=== PATIENT | female | born 1970 | race Caucasian/White ===

== ENCOUNTER 2017-07-10 10:06 | Emergency (ER) | payer MEDICARE ==
--- NOTE | 2017-07-10 10:34 | ERPHSYRPT ---
- History of Present Illness Time Seen by Provider: 07/10/17 10:32 Historian: patient Exam Limitations: no limitations Patient Subjective Stated Complaint: Pt states she fell Tuesday evening and hit the right side of her chest on a carseat. It has been a little sore since then but today the pain got worse and it hurts when she takes a breath in. Triage Nursing Assessment: Pt alert and oriented x3. skin pink warm and dry. afebrile. pt breathing shallow due to pain. right side of chest tender to touch Physician History: mild right anterior chest wall ache since trip and fall against her car seat last Tuesday, pleuritic and positional, no other injury, no loc, no neck pain, no abdominal pain, no NV, ambulatory, no bleeding, pt refused pain med Aspirin Treatment Today: no aspirin today Allergies/Adverse Reactions: bupropion HCl [From Wellbutrin] Allergy (Intermediate, Verified 07/21/16 14:11) aripiprazole [From Abilify] Allergy (Verified 07/21/16 14:11) clindamycin Allergy (Verified 07/21/16 14:11) metal Allergy (Uncoded 07/21/16 14:11) unknown antibiotic Allergy (Uncoded 07/21/16 14:11) caused itching and rash Home Medications: Aspirin 81 mg PO DAILY 02/13/16 [History] Atenolol 50 mg [Tenormin 50 mg] 25 mg PO BID 02/13/16 [History] Betamethasone Valerate 1 appful TOP DAILY 02/13/16 [History] Cetirizine HCl [Zyrtec] 10 mg PO DAILY 02/13/16 [History] Cholecalciferol (Vitamin D3) [Vitamin D] 1 tab PO DAILY 02/13/16 [History] Enalapril Maleate 5 mg [Vasotec 5 MG] 5 mg PO DAILY 02/13/16 [History] Glimepiride 4 mg [Amaryl 4 mg] 4 mg PO BID 02/13/16 [History] Ibuprofen 800 mg PO Q8HPRN PRN 02/13/16 [History] Insulin Detemir [Levemir Flexpen] 50 units SQ DAILY 02/13/16 [History] Loperamide HCl 2 mg [Imodium 2 mg] 2 mg PO BID 02/13/16 [History] Medroxyprogesterone Acetate [Depo-Provera] 0 mg SQ .UNKNOWN 02/13/16 [History] Multivitamin [Daily Multivitamin] 1 tab PO DAILY 02/13/16 [History] Promethazine HCl 25 mg [Phenergan 25 mg] 25 mg PO Q12H PRN PRN 02/13/16 [ History] Ranitidine HCl [Zantac 75] 150 mg PO BID 02/13/16 [History] Simvastatin 40 mg [Zocor 40 mg] 40 mg PO HS 02/13/16 [History] Sitagliptin Phosphate [Januvia] 100 mg PO DAILY 02/13/16 [History] Venlafaxine HCl ER 75 mg [Effexor XR 75 MG] 150 mg PO BID 02/13/16 [ History] Insulin Aspart [NovoLOG Insulin] 10 - 15 unit SQ UD 05/26/16 [History] Clonazepam 0.5 mg [Klonopin 0.5 MG] 0.5 mg PO TID 06/15/16 [History] Doxycycline Hyclate 100 mg [Vibramycin 100 MG] 100 mg PO BID 07/14/16 [ History] Hydrocodone/APAP 10/325 mg [[place] 10/325 MG Tablet] 1 tab PO Q4-6HPRN PRN 08/17/16 [History] Cyclobenzaprine HCl [Flexeril] 10 mg PO TID 11/09/16 [History] Pramipexole Di-HCl [Mirapex] 2 mg PO HS 03/07/17 [History] Hx Tetanus, Diphtheria Vaccination/Date Given: Yes Hx Influenza Vaccination/Date Given: Yes Hx Pneumococcal Vaccination/Date Given: No - Review of Systems Constitutional: No Fever Eyes: No Symptoms Ears, Nose, & Throat: No Symptoms Respiratory: No Symptoms Cardiac: Chest Pain Abdominal/Gastrointestinal: No Symptoms Musculoskeletal: Fall, No Back Pain, No Neck Pain, No Deformity Skin: No Symptoms Neurological: No Symptoms, No Dizziness, No Focal Weakness, No Headache - Past Medical History Pertinent Past Medical History: Yes Neurological History: No Pertinent History ENT History: No Pertinent History Cardiac History: Arrhythmia, High Cholesterol, Hypertension Respiratory History: Sleep Apnea Endocrine Medical History: Diabetes Type II Musculoskeletal History: Degenerative Disk Disease, Fibromyalgia GI Medical History: GERD History: Renal Disease Psycho-Social History: Depression, Panic Disorder Female Reproductive Disorders: No Pertinent History Other Medical History: Agoraphobia - Past Surgical History Past Surgical History: Yes Neuro Surgical History: No Pertinent History Cardiac: Other Respiratory: No Pertinent History Gastrointestinal: Cholecystectomy Genitourinary: No Pertinent History Musculoskeletal: Other Female Surgical History: No Pertinent History Other Surgical History: back surgery- partial discectomy. cardiac ablation. FATTY TUMOR FROM BACK REMOVED 08/27/13. debridement - Social History Smoking Status: Current every day smoker How long have you smoked: 23years Exposure to second hand smoke: No Drug Use: none Patient Lives Alone: Yes Significant Family History: diabetes - Female History Hx Now: No - Nursing Vital Signs Nursing Vital Signs: Initial Vital Signs Temperature 98.7 F 07/10/17 10:20 Pulse Rate 86 07/10/17 10:20 Respiratory Rate 16 07/10/17 10:20 Blood Pressure 145/70 07/10/17 10:20 O2 Sat by Pulse Oximetry 99 07/10/17 10:20 Pain Scale Pain Intensity 9 - Physical Exam General Appearance: no apparent distress Eye Exam: PERRL/EOMI Ears, Nose, Throat Exam: normal ENT inspection Neck Exam: normal inspection, non-tender Respiratory Exam: normal breath sounds, chest tenderness, lungs clear Cardiovascular Exam: regular rate/rhythm Gastrointestinal/Abdomen Exam: soft, No tenderness Back Exam: normal inspection, No vertebral tenderness Extremity Exam: normal inspection, normal range of motion Neurologic Exam: alert, oriented x 3, cooperative Skin Exam: normal color, warm, dry SpO2 Interpretation: normal SpO2: 99 Oxygen Delivery: Room Air - Course Nursing assessment & vital signs reviewed: Yes EKG Interpreted by Me: Other (nsr 79 similar compared to 2013) - Radiology Exams Chest X-ray Interpretation: Interpreted by me, Other (no obvious pneumothorax or fx) Ordered Tests: Active Orders 24 hr Category Date Time Status EKG-ER Only STAT Care 07/10/17 10:30 Active CHEST 2 VIEWS (PA AND LAT) Stat Exams 07/10/17 10:31 Taken CBC W DIFF Stat Lab 07/10/17 10:40 Completed CK-Creatinine Phosphokinase Stat Lab 07/10/17 10:40 Completed CMP Stat Lab 07/10/17 10:40 Completed D-DIMER QUANTITATION Stat Lab 07/10/17 10:40 Completed TROPONIN Q3H Lab 07/10/17 10:40 Completed TROPONIN Q3H Lab 07/10/17 13:45 Ordered TROPONIN Q3H Lab 07/10/17 16:45 Ordered TROPONIN Q3H Lab 07/10/17 19:45 Ordered TROPONIN Q3H Lab 07/10/17 22:45 Ordered Medication Summary Discontinued Medications Generic Name Dose Route Start Last Admin Trade Name Freq PRN Reason Stop Dose Admin Hydrocodone Bitart/Acetaminophen 1 tab 07/10/17 11:46 07/10/17 11:49 [place] 5/325 Mg PO 07/10/17 11:47 1 tab STAT ONE Administration Hydrocodone Bitart/Acetaminophen Confirm 07/10/17 11:48 [place] 5/325 Mg Administered 07/10/17 11:49 Dose 1 tab .ROUTE .[facility]-MED ONE Lab/Rad Data: Laboratory Result Diagrams 07/10/17 10:40 07/10/17 10:40 Laboratory Results 07/10/17 07/10/17 07/10/17 Range/Units 10:40 10:40 10:40 WBC (4.0-10.5) K/mm3 RBC (4.1-5.4) M/mm3 Hgb (12.0-16.0) gm/dl Hct (35-47) % MCV (78-100) fl MCH (26-32) pg MCHC (32-36) g/dl RDW (11.5-14.0) % Plt Count (150-450) K/mm3 MPV (6-9.5) fl Gran % (36.0-66.0) % Lymphocytes % (24.0-44.0) % Monocytes % (0.0-12.0) % Eosinophils % (0.00-5.0) % Basophils % (0.0-0.4) % Basophils # (0-0.4) D-Dimer 265.86 (0-500) ng/mL Sodium 139 (136-145) mEq/L Potassium 4.0 (3.5-5.1) mEq/L Chloride 105 (98-107) mEq/L Carbon Dioxide 22.1 (21-32) mEq/L Anion Gap 15.9 H (5-15) MEQ/L BUN 12 (9-20) mg/dL Creatinine 0.73 (0.55-1.30) mg/dl Estimated GFR > 60 ML/MIN Glucose 291 H (70-110) MG/DL Calcium 9.3 (8.5-10.1) mg/dL Total Bilirubin 0.40 (0.2-1.0) mg/dL AST 28 (15-37) U/L ALT 66 (12-78) U/L Alkaline Phosphatase 133 H (46-116) U/L Creatine Kinase 44 (26-192) U/L Troponin I < 0.017 (0.000-0.056) ng/ml Serum Total Protein 7.1 (6.4-8.2) gm/dL Albumin 3.7 (3.4-5.0) g/dL 07/10/17 Range/Units 10:40 WBC 12.4 H (4.0-10.5) K/mm3 RBC 4.77 (4.1-5.4) M/mm3 Hgb 13.8 (12.0-16.0) gm/dl Hct 40.3 (35-47) % MCV 84.5 (78-100) fl MCH 28.9 (26-32) pg MCHC 34.2 (32-36) g/dl RDW 13.7 (11.5-14.0) % Plt Count 208 (150-450) K/mm3 MPV 10.9 H (6-9.5) fl Gran % 68.7 H (36.0-66.0) % Lymphocytes % 22.4 L (24.0-44.0) % Monocytes % 6.2 (0.0-12.0) % Eosinophils % 2.3 (0.00-5.0) % Basophils % 0.4 (0.0-0.4) % Basophils # 0.05 (0-0.4) D-Dimer (0-500) ng/mL Sodium (136-145) mEq/L Potassium (3.5-5.1) mEq/L Chloride (98-107) mEq/L Carbon Dioxide (21-32) mEq/L Anion Gap (5-15) MEQ/L BUN (9-20) mg/dL Creatinine (0.55-1.30) mg/dl Estimated GFR ML/MIN Glucose (70-110) MG/DL Calcium (8.5-10.1) mg/dL Total Bilirubin (0.2-1.0) mg/dL AST (15-37) U/L ALT (12-78) U/L Alkaline Phosphatase (46-116) U/L Creatine Kinase (26-192) U/L Troponin I (0.000-0.056) ng/ml Serum Total Protein (6.4-8.2) gm/dL Albumin (3.4-5.0) g/dL - Progress Progress: improved Air Movement: good Progress Note: 07/10/17 12:24 pt improved, norco warnings given, ice, return if worse Discussed with : Bib Will see patient in: office Counseled pt/family regarding: lab results, diagnosis, need for follow-up, rad results - Departure Time of Disposition: 12:25 Departure Disposition: Home Clinical Impression: Chest wall injury Qualifiers: Encounter type: initial encounter Qualified Code(s): S29.9XXA - Unspecified injury of thorax, initial encounter Condition: Stable Critical Care Time: No Referrals: ERIN MONTANEZ [Primary Care Provider] - Instructions: Contusion, Prevent Falls Additional Instructions: norco warnings given see your doctor use ice return if worse
[2017-07-10 10:47] LABS: BASOPHIL % 0.4 % (0.0-0.4); Eosinophil % 2.3 % (0.00-5.0); Granulocytes % 68.7 % (36.0-66.0); Lymphocytes % 22.4 % (24.0-44.0); Mean Cell Volume 84.5 fl (78-100); Mean Corpuscular Hemoglobin 28.9 pg (26-32); Mean Platelet Volume 10.9 fl (6-9.5); Monocytes % 6.2 % (0.0-12.0); Platelet Count 208 K/mm3 (150-450); Red Blood Count 4.77 M/mm3 (4.1-5.4); Red Cell Distribution Width 13.7 % (11.5-14.0); White Blood Count 12.4 K/mm3 (4.0-10.5)
[2017-07-10 11:15] LABS: ALBUMIN 3.7 g/dL (3.4-5.0); ALKALINE PHOSPHATASE 133 U/L (46-116); ANION GAP 15.9 MEQ/L (5-15); BLOOD UREA NITROGEN 12 mg/dL (9-20); CHLORIDE 105 mEq/L (98-107); Carbon Dioxide 22.1 mEq/L (21-32); Glucose 291 MG/DL (70-110); SGOT/AST 28 U/L (15-37); SGPT/ALT 66 U/L (12-78); SODIUM 139 mEq/L (136-145); Total Protein 7.1 gm/dL (6.4-8.2)
[2017-07-10] MEDS ORDERED: NORCO 5/325 MG PO ONE (11:46)
[2017-07-10] MEDS ORDERED: NORCO 5/325 MG ONE (11:48)
[2017-07-10 12:41] VITALS: BP 111/50; PULSE 85; O2SAT 98
--- NOTE | 2017-07-10 19:28 | XRAY ---
Indication: Right upper chest pain following injury. Comparison: February 13, 2016. PA/lateral chest obtained. Lateral view limited by respiration artifact. Lungs clear. Heart is not enlarged. Bony thorax intact. Impression: Nonacute limited chest.
== END 2017-07-10 12:40 | disposition home or self-care (01) ==
LOC: ED 10:06
DX: S29.9XXA Unspecified injury of thorax, initial encounter (principal); W01.198A Fall on same level from slipping, tripping and stumbling with subsequent striking against other object, initial encounter; Z79.899 Other long term (current) drug therapy; Z79.891 Long term (current) use of opiate analgesic; E78.00 Pure hypercholesterolemia, unspecified; I10 Essential (primary) hypertension; E11.9 Type 2 diabetes mellitus without complications
CPT/HCPCS: 36415; 71020; 80053; 82550; 84484; 85025; 85379; 93005; 99283; 99284; A9270-GY

== ENCOUNTER 2018-02-02 16:14 | Emergency (ER) | payer MEDICARE ==
[2018-02-02 16:26] VITALS: BP 111/63; PULSE 93; O2SAT 99
--- NOTE | 2018-02-02 16:56 | ERPHSYRPT ---
- History of Present Illness Time Seen by Provider: 02/02/18 16:40 Source: patient Exam Limitations: clinical condition Patient Subjective Stated Complaint: pt reports congestion and cough beginning a few days ago worsening with time-states she woke this am to a left earache- denies fever Triage Nursing Assessment: pt pink warm and dry-hoase cough noted throughout triage-able to speak in complete sentences with ease-no sob noted Physician History: PATIENT WITH A HISTORY OF HYPERTENSION, TYPE 2 DIABETES AND BIPOLAR DISORDER COMPLAINS OF PRODUCTIVE COUGH, AND SINUS PRESSURE FOR 3-4 DAYS. DENIES FEVER, CHILLS, DYSPNEA OR SORETHROAT. Timing/Duration: day(s) Cough Quality/Degree: moderate, productive cough Possible Cause: occasional episodes Modifying Factors: Improves With: activity Associated Symptoms: cough, nasal congestion, nasal drainage Allergies/Adverse Reactions: bupropion HCl [From Wellbutrin] Allergy (Intermediate, Verified 02/02/18 16:26) aripiprazole [From Abilify] Allergy (Verified 02/02/18 16:26) clindamycin Allergy (Verified 02/02/18 16:26) metal Allergy (Uncoded 02/02/18 16:26) unknown antibiotic Allergy (Uncoded 02/02/18 16:26) caused itching and rash Home Medications: Aspirin 81 mg PO DAILY 02/13/16 [History] Atenolol 50 mg [Tenormin 50 mg] 25 mg PO BID 02/13/16 [History] Betamethasone Valerate 1 appful TOP DAILY 02/13/16 [History] Cetirizine HCl [Zyrtec] 10 mg PO DAILY 02/13/16 [History] Cholecalciferol (Vitamin D3) [Vitamin D] 1 tab PO DAILY 02/13/16 [History] Enalapril Maleate 5 mg [Vasotec 5 MG] 5 mg PO DAILY 02/13/16 [History] Glimepiride 4 mg [Amaryl 4 mg] 4 mg PO BID 02/13/16 [History] Ibuprofen 800 mg PO Q8HPRN PRN 02/13/16 [History] Insulin Detemir [Levemir Flexpen] 50 units SQ DAILY 02/13/16 [History] Loperamide HCl 2 mg [Imodium 2 mg] 2 mg PO BID 02/13/16 [History] Medroxyprogesterone Acetate [Depo-Provera] 0 mg SQ .UNKNOWN 02/13/16 [History] Multivitamin [Daily Multivitamin] 1 tab PO DAILY 02/13/16 [History] Promethazine HCl 25 mg [Phenergan 25 mg] 25 mg PO Q12H PRN PRN 02/13/16 [ History] Ranitidine HCl [Zantac 75] 150 mg PO BID 02/13/16 [History] Simvastatin 40 mg [Zocor 40 mg] 40 mg PO HS 02/13/16 [History] Sitagliptin Phosphate [Januvia] 100 mg PO DAILY 02/13/16 [History] Venlafaxine HCl ER 75 mg [Effexor XR 75 MG] 150 mg PO BID 02/13/16 [ History] Insulin Aspart [NovoLOG Insulin] 10 - 15 unit SQ UD 05/26/16 [History] Clonazepam 0.5 mg [Klonopin 0.5 MG] 0.5 mg PO TID 06/15/16 [History] Doxycycline Hyclate 100 mg [Vibramycin 100 MG] 100 mg PO BID 07/14/16 [ History] Hydrocodone/APAP 10/325 mg [[place] 10/325 MG Tablet] 1 tab PO Q4-6HPRN PRN 08/17/16 [History] Cyclobenzaprine HCl [Flexeril] 10 mg PO TID 11/09/16 [History] Pramipexole Di-HCl [Mirapex] 2 mg PO HS 03/07/17 [History] Hx Tetanus, Diphtheria Vaccination/Date Given: Yes Hx Influenza Vaccination/Date Given: Yes Hx Pneumococcal Vaccination/Date Given: No Immunizations Up to Date: Yes - Review of Systems Constitutional: No Fever, No Chills Eyes: No Symptoms Ears, Nose, & Throat: No Symptoms, Nose Congestion, Sinus Drainage Respiratory: Cough, No Dyspnea Cardiac: No Chest Pain, No Edema, No Syncope Abdominal/Gastrointestinal: No Symptoms, No Abdominal Pain, No Nausea, No Vomiting, No Diarrhea Genitourinary Symptoms: No Symptoms, No Dysuria Musculoskeletal: No Symptoms, No Back Pain, No Neck Pain Skin: No Rash Neurological: No Dizziness, No Focal Weakness, No Sensory Changes Psychological: No Symptoms Endocrine: No Symptoms All Other Systems: Reviewed and Negative - Past Medical History Pertinent Past Medical History: Yes Neurological History: No Pertinent History ENT History: No Pertinent History Cardiac History: Arrhythmia, High Cholesterol, Hypertension Respiratory History: Sleep Apnea Endocrine Medical History: Diabetes Type II Musculoskeletal History: Degenerative Disk Disease, Fibromyalgia GI Medical History: GERD History: Renal Disease Psycho-Social History: Depression, Panic Disorder Female Reproductive Disorders: No Pertinent History Other Medical History: Agoraphobia - Past Surgical History Past Surgical History: Yes Neuro Surgical History: No Pertinent History Cardiac: Other Respiratory: No Pertinent History Gastrointestinal: Cholecystectomy Genitourinary: No Pertinent History Musculoskeletal: Other Female Surgical History: No Pertinent History Other Surgical History: back surgery- partial discectomy. cardiac ablation. FATTY TUMOR FROM BACK REMOVED 08/27/13. debridement - Social History Smoking Status: Current every day smoker How long have you smoked: yrs Exposure to second hand smoke: No Drug Use: none Patient Lives Alone: Yes Significant Family History: diabetes - Female History Hx Last Menstrual Period: depo Hx Now: No - Nursing Vital Signs Nursing Vital Signs: Initial Vital Signs Temperature 98.5 F 02/02/18 16:21 Pulse Rate 93 H 02/02/18 16:21 Respiratory Rate 18 02/02/18 16:21 Blood Pressure 111/63 02/02/18 16:21 O2 Sat by Pulse Oximetry 99 02/02/18 16:21 Pain Scale Pain Intensity 5 - Physical Exam General Appearance: no apparent distress, alert Eye Exam: PERRL/EOMI, eyes nml inspection Ears, Nose, Throat Exam: normal ENT inspection, TMs normal, pharynx normal, moist mucous membranes, other (NO PERCUSSION TENDERNESS OVER SINUSES) Neck Exam: normal inspection, non-tender, supple, full range of motion Respiratory Exam: normal breath sounds, lungs clear, No respiratory distress Cardiovascular Exam: regular rate/rhythm, normal heart sounds Gastrointestinal/Abdomen Exam: No tenderness Back Exam: normal inspection, No CVA tenderness, No vertebral tenderness Extremity Exam: normal inspection, normal range of motion Neurologic Exam: alert, oriented x 3, cooperative, normal mood/affect, sensation nml, No motor deficits Skin Exam: normal color, warm, dry, No rash Lymphatic Exam: No adenopathy SpO2: 99 Oxygen Delivery: Room Air - Departure Time of Disposition: 17:00 Departure Disposition: Home Clinical Impression: ACUTE SINUSITIS, ACUTE BRONCHITIS Condition: Stable Critical Care Time: No Referrals: ERIN MONTANEZ [Primary Care Provider] - Additional Instructions: BEGIN ANTIBIOTIC OMNICEF 300MG TWICE DAILY FOR 10 DAYS. TAKE OVER THE COUNTER COUGH SYRUP FOR COUGHING. TYLENOL EVERY 4 HOURS FOR FEVER. Prescriptions: Cefdinir [Omnicef 300 mg] 300 mg PO BID #20 capsule
== END 2018-02-02 17:17 | disposition home or self-care (01) ==
LOC: ED 16:14
DX: J01.90 Acute sinusitis, unspecified (principal); J20.9 Acute bronchitis, unspecified; Z79.82 Long term (current) use of aspirin; Z79.899 Other long term (current) drug therapy
CPT/HCPCS: 99283

== ENCOUNTER 2019-02-21 16:17 | Emergency (ER) | payer MEDICARE | END 2019-02-21 16:40 | disposition left against medical advice (07) | LOC: ED 16:17 | DX: Z53.21 Procedure and treatment not carried out due to patient leaving prior to being seen by health care provider (principal) | CPT/HCPCS: 36415; 80053; 82306; 82607; 82746; 82962; 83036; 84443; 84630; 85025; 86038; 86430; 99281 ==

== ENCOUNTER 2019-10-22 13:54 | Emergency (ER) | payer MEDICARE ==
--- NOTE | 2019-10-22 13:58 | ERPHSYRPT ---
- History of Present Illness Time Seen by Provider: 10/22/19 13:58 Source: patient Exam Limitations: no limitations Physician History: A 49-year-old insulin-dependent diabetic obese white female with hypertension, increased cholesterol, arrhythmias, sleep apnea, fibromyalgia, depression, anxiety, DJD and GERD and presents with 3-day history of weakness and generalized malaise. She does not complain of any chest pain or abdominal pain. She has no nausea vomiting or diarrhea. Patient has a history of Agoraphobia. Timing/Duration: day(s) Severity: mild Associated Symptoms: malaise, weakness Allergies/Adverse Reactions: bupropion HCl [From Wellbutrin] Allergy (Intermediate, Verified 02/02/18 16:26) aripiprazole [From Abilify] Allergy (Verified 02/02/18 16:26) clindamycin Allergy (Verified 02/02/18 16:26) metal Allergy (Uncoded 02/02/18 16:26) Home Medications: Aspirin 81 mg PO DAILY 02/13/16 [History] Atenolol 50 mg [Tenormin 50 mg] 25 mg PO BID 02/13/16 [History] Betamethasone Valerate 1 appful TOP DAILY 02/13/16 [History] Cetirizine HCl [Zyrtec] 10 mg PO DAILY 02/13/16 [History] Cholecalciferol (Vitamin D3) [Vitamin D] 1 tab PO DAILY 02/13/16 [History] Enalapril Maleate 5 mg [Vasotec 5 MG] 5 mg PO DAILY 02/13/16 [History] Glimepiride 4 mg [Amaryl 4 mg] 4 mg PO BID 02/13/16 [History] Ibuprofen 800 mg PO Q8HPRN PRN 02/13/16 [History] Insulin Detemir [Levemir Flexpen] 50 units SQ DAILY 02/13/16 [History] Loperamide HCl 2 mg [Imodium 2 mg] 2 mg PO BID 02/13/16 [History] Medroxyprogesterone Acetate [Depo-Provera] 0 mg SQ .UNKNOWN 02/13/16 [History] Multivitamin [Daily Multivitamin] 1 tab PO DAILY 02/13/16 [History] Promethazine HCl 25 mg [Phenergan 25 mg] 25 mg PO Q12H PRN PRN 02/13/16 [ History] Ranitidine HCl [Zantac 75] 150 mg PO BID 02/13/16 [History] Simvastatin 40 mg [Zocor 40 mg] 40 mg PO HS 02/13/16 [History] Sitagliptin Phosphate [Januvia] 100 mg PO DAILY 02/13/16 [History] Venlafaxine HCl ER 75 mg [Effexor XR 75 MG] 150 mg PO BID 02/13/16 [ History] Insulin Aspart [NovoLOG Insulin] 10 - 15 unit SQ UD 05/26/16 [History] Clonazepam 0.5 mg [Klonopin 0.5 MG] 0.5 mg PO TID 06/15/16 [History] Doxycycline Hyclate 100 mg [Vibramycin 100 MG] 100 mg PO BID 07/14/16 [ History] Hydrocodone/APAP 10/325 mg [[place] 10/325 MG Tablet] 1 tab PO Q4-6HPRN PRN 08/17/16 [History] Cyclobenzaprine HCl [Flexeril] 10 mg PO TID 11/09/16 [History] Pramipexole Di-HCl [Mirapex] 2 mg PO HS 03/07/17 [History] Hx Tetanus, Diphtheria Vaccination/Date Given: Yes Hx Influenza Vaccination/Date Given: Yes Hx Pneumococcal Vaccination/Date Given: No - Review of Systems Constitutional: Weakness Eyes: No Symptoms Ears, Nose, & Throat: No Symptoms Respiratory: No Symptoms Cardiac: No Symptoms Abdominal/Gastrointestinal: No Symptoms Genitourinary Symptoms: No Symptoms Musculoskeletal: No Symptoms Skin: No Symptoms Neurological: No Symptoms Psychological: No Symptoms Endocrine: No Symptoms - Past Medical History Pertinent Past Medical History: Yes Neurological History: No Pertinent History ENT History: No Pertinent History Cardiac History: Arrhythmia, High Cholesterol, Hypertension Respiratory History: Sleep Apnea Endocrine Medical History: Diabetes Type II Musculoskeletal History: Degenerative Disk Disease, Fibromyalgia GI Medical History: GERD History: Renal Disease Psycho-Social History: Depression, Panic Disorder Female Reproductive Disorders: No Pertinent History Other Medical History: Agoraphobia - Past Surgical History Past Surgical History: Yes Neuro Surgical History: No Pertinent History Cardiac: Other Respiratory: No Pertinent History Gastrointestinal: Cholecystectomy Genitourinary: No Pertinent History Musculoskeletal: Other Female Surgical History: No Pertinent History Other Surgical History: back surgery- partial discectomy. cardiac ablation. FATTY TUMOR FROM BACK REMOVED 08/27/13. debridement - Social History Smoking Status: Current every day smoker How long have you smoked: yrs Exposure to second hand smoke: No Drug Use: none Patient Lives Alone: Yes Significant Family History: diabetes - Nursing Vital Signs Nursing Vital Signs: Initial Vital Signs Temperature 97.4 F 10/22/19 14:00 Pulse Rate 104 H 10/22/19 14:00 Respiratory Rate 22 10/22/19 14:00 Blood Pressure 136/61 10/22/19 14:00 O2 Sat by Pulse Oximetry 100 10/22/19 14:00 Pain Scale Pain Intensity 0 - Physical Exam General Appearance: no apparent distress, alert, anxiety Eye Exam: PERRL/EOMI, eyes nml inspection Ears, Nose, Throat Exam: normal ENT inspection, moist mucous membranes Neck Exam: normal inspection, non-tender, supple, full range of motion Respiratory Exam: normal breath sounds, lungs clear, airway intact, No chest tenderness, No respiratory distress Cardiovascular Exam: regular rate/rhythm, normal heart sounds, normal peripheral pulses Gastrointestinal/Abdomen Exam: soft, normal bowel sounds, No tenderness Pelvic Exam: not done Rectal Exam: not done Back Exam: normal inspection, normal range of motion, No CVA tenderness, No vertebral tenderness Extremity Exam: normal inspection, normal range of motion, pelvis stable Neurologic Exam: alert, oriented x 3, cooperative, 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 II-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 nml as tested, normal mood/affect, nml cerebellar function, nml station & gait Skin Exam: normal color, warm, dry Lymphatic Exam: No adenopathy SpO2 Interpretation: normal O2 Delivery: Room Air - Course Nursing assessment & vital signs reviewed: Yes EKG Interpreted by Me: RATE (85), Sinus Rhythm, NORMAL AXIS, NORMAL INTERVALS, NORMAL QRS Ordered Tests: Active Orders 24 hr Category Date Time Status EKG-ER Only STAT Care 10/22/19 14:57 Active CBC W DIFF Stat Lab 10/22/19 15:00 Completed CMP Stat Lab 10/22/19 14:55 Completed MAGNESIUM Stat Lab 10/22/19 14:55 Completed [place] Screen Stat Lab 10/22/19 14:55 Completed TROPONIN Q3H Lab 10/22/19 14:55 Completed TROPONIN Q3H Lab 10/22/19 18:00 Ordered TROPONIN Q3H Lab 10/22/19 21:00 Ordered TROPONIN Q3H Lab 10/23/19 00:00 Ordered TROPONIN Q3H Lab 10/23/19 03:00 Ordered UA W/RFX UR CULTURE Stat Lab 10/22/19 15:30 Completed Medication Summary Discontinued Medications Generic Name Dose Route Start Last Admin Trade Name Mary PRN Reason Stop Dose Admin Sodium Chloride 500 mls @ 500 mls/hr 10/22/19 14:57 10/22/19 16:11 Sodium Chloride 0.9% 500 Ml IV 10/22/19 15:56 Infused .Q1H ONE Infusion Sodium Chloride Confirm 10/22/19 15:08 Sodium Chloride 0.9% 500 Ml Administered 10/22/19 15:09 Dose 500 mls @ ud IV .STK-MED ONE Lab/Rad Data: Laboratory Result Diagrams 10/22/19 15:00 10/22/19 14:55 Laboratory Results 10/22/19 10/22/19 10/22/19 Range/Units 15:30 15:00 14:55 WBC 13.3 H (4.0-10.5) K/mm3 RBC 5.19 (4.1-5.4) M/mm3 Hgb 15.3 (12.0-16.0) gm/dl Hct 45.2 (35-47) % MCV 87.1 (78-100) fl MCH 29.5 (26-32) pg MCHC 33.8 (32-36) g/dl RDW 14.2 H (11.5-14.0) % Plt Count 243 (150-450) K/mm3 MPV 11.4 H (7.5-11.0) fl Gran % 71.6 H (36.0-66.0) % Eos # (Auto) 0.23 (0-0.5) Absolute Lymphs (auto) 2.51 (1.0-4.6) Absolute Monos (auto) 0.97 (0.0-1.3) Lymphocytes % 18.8 L (24.0-44.0) % Monocytes % 7.3 (0.0-12.0) % Eosinophils % 1.7 (0.00-5.0) % Basophils % 0.6 (0.0-0.4) % Absolute Granulocytes 9.54 H (1.4-6.9) Basophils # 0.08 (0-0.4) Sodium (137-145) mmol/L Potassium (3.5-5.1) mmol/L Chloride (98-107) mmol/L Carbon Dioxide (22-30) mmol/L Anion Gap (5-15) MEQ/L BUN (7-17) mg/dL Creatinine (0.52-1.04) mg/dL Estimated GFR ML/MIN Glucose (74-106) mg/dL Calcium (8.4-10.2) mg/dL Magnesium (1.6-2.3) mg/dL Total Bilirubin (0.2-1.3) mg/dL AST (14-36) U/L ALT (0-35) U/L Alkaline Phosphatase (38-126) U/L Troponin I (0.000-0.034) ng/mL Serum Total Protein (6.3-8.2) g/dL Albumin (3.5-5.0) g/dL Urine Color YELLOW (YELLOW) Urine Appearance CLEAR (CLEAR) Urine pH 6.0 (5-6) Ur Specific [place] 1.012 (1.005-1.025) Urine Protein 30 (Negative) Urine Ketones NEGATIVE (NEGATIVE) Urine Blood NEGATIVE (0-5) Massimo/ul Urine Nitrite NEGATIVE (NEGATIVE) Urine Bilirubin NEGATIVE (NEGATIVE) Urine Urobilinogen NEGATIVE (0-1) mg/dL Ur Leukocyte Esterase NEGATIVE (NEGATIVE) Urine WBC (Auto) NONE (0-5) /HPF Urine RBC (Auto) NONE (0-2) /HPF U Epithel Cells (Auto) NONE (FEW) /HPF Urine Bacteria (Auto) RARE (NEGATIVE) /HPF Urine Mucus (Auto) SLIGHT (NEGATIVE) /HPF Urine Culture Reflexed NO (NO) Urine Glucose NEGATIVE (NEGATIVE) mg/dL Monoscreen (Negative) Influenza Type A Ag NEGATIVE (NEGATIVE) Influenza Type B Ag NEGATIVE (NEGATIVE) RSV (PCR) NEGATIVE (Negative) 10/22/19 10/22/19 10/22/19 Range/Units 14:55 14:55 14:55 WBC (4.0-10.5) K/mm3 RBC (4.1-5.4) M/mm3 Hgb (12.0-16.0) gm/dl Hct (35-47) % MCV (78-100) fl MCH (26-32) pg MCHC (32-36) g/dl RDW (11.5-14.0) % Plt Count (150-450) K/mm3 MPV (7.5-11.0) fl Gran % (36.0-66.0) % Eos # (Auto) (0-0.5) Absolute Lymphs (auto) (1.0-4.6) Absolute Monos (auto) (0.0-1.3) Lymphocytes % (24.0-44.0) % Monocytes % (0.0-12.0) % Eosinophils % (0.00-5.0) % Basophils % (0.0-0.4) % Absolute Granulocytes (1.4-6.9) Basophils # (0-0.4) Sodium 141 (137-145) mmol/L Potassium 4.2 (3.5-5.1) mmol/L Chloride 106 (98-107) mmol/L Carbon Dioxide 25 (22-30) mmol/L Anion Gap 14.7 (5-15) MEQ/L BUN 9 (7-17) mg/dL Creatinine 0.57 (0.52-1.04) mg/dL Estimated GFR > 60.0 ML/MIN Glucose 135 H (74-106) mg/dL Calcium 9.8 (8.4-10.2) mg/dL Magnesium 2.0 (1.6-2.3) mg/dL Total Bilirubin 0.50 (0.2-1.3) mg/dL AST 61 H (14-36) U/L ALT 47 H (0-35) U/L Alkaline Phosphatase 145 H (38-126) U/L Troponin I < 0.012 (0.000-0.034) ng/mL Serum Total Protein 7.8 (6.3-8.2) g/dL Albumin 4.6 (3.5-5.0) g/dL Urine Color (YELLOW) Urine Appearance (CLEAR) Urine pH (5-6) Ur Specific [place] (1.005-1.025) Urine Protein (Negative) Urine Ketones (NEGATIVE) Urine Blood (0-5) Massimo/ul Urine Nitrite (NEGATIVE) Urine Bilirubin (NEGATIVE) Urine Urobilinogen (0-1) mg/dL Ur Leukocyte Esterase (NEGATIVE) Urine WBC (Auto) (0-5) /HPF Urine RBC (Auto) (0-2) /HPF U Epithel Cells (Auto) (FEW) /HPF Urine Bacteria (Auto) (NEGATIVE) /HPF Urine Mucus (Auto) (NEGATIVE) /HPF Urine Culture Reflexed (NO) Urine Glucose (NEGATIVE) mg/dL Monoscreen NEGATIVE (Negative) Influenza Type A Ag (NEGATIVE) Influenza Type B Ag (NEGATIVE) RSV (PCR) (Negative) - Progress Progress: improved Progress Note: 10/22/19 17:05 Medical decision making: The patient was reexamined. I reviewed the patient's work-up results. Patient does have slightly elevated white blood cell count, transaminases of the liver, as well as small amount of protein in her urine. These have been chronically elevated. Patient thinks that maybe her symptoms are more due to anxiety and depression. She was supposed to be taking another medication at night but she was afraid to start it. The patient who prescribed this medication is aware of all the patient's medications that she is taking. After discussion of her options, patient has decided to start that new medicine and to follow-up with her prescribing physician. I have opted not to place the patient on any antibiotics at this time. Counseled pt/family regarding: lab results, diagnosis, need for follow-up - Departure Departure Disposition: Home Clinical Impression: Weakness, Leukocytosis, unspecified, Proteinuria, Elevated liver enzymes Condition: Stable Critical Care Time: No Referrals: ERIN MONTANEZ [Primary Care Provider] - Additional Instructions: Plenty of fluids. Take your medications as prescribed. Follow-up with your prescribing physician tomorrow for further management
[2019-10-22] MEDS ORDERED: Sodium Chloride 0.9% 500 ML 500 ML IV ONE ×2 (14:57→15:08)
[2019-10-22 15:13] LABS: Absolute Neutrophil Ct (ANC) 9.54 (1.4-6.9); BASOPHIL % 0.6 % (0.0-0.4); Basophil (Absolute #) 0.08 (0-0.4); Eosinophil % 1.7 % (0.00-5.0); Eosinophil (Absolute #) 0.23 (0-0.5); Hematocrit 45.2 % (35-47); Hemoglobin 15.3 gm/dl (12.0-16.0); Lymphocyte (Absolute #) 2.51 (1.0-4.6); Lymphocytes % 18.8 % (24.0-44.0); Mean Cell Volume 87.1 fl (78-100); Mean Corpuscular Hemoglobin 29.5 pg (26-32); Mean Corpuscular Hgb Concent. 33.8 g/dl (32-36); Mean Platelet Volume 11.4 fl (7.5-11.0); Monocyte (Absolute #) 0.97 (0.0-1.3); Monocytes % 7.3 % (0.0-12.0); Neutrophil % 71.6 % (36.0-66.0); Platelet Count 243 K/mm3 (150-450); Red Blood Count 5.19 M/mm3 (4.1-5.4); Red Cell Distribution Width 14.2 % (11.5-14.0); White Blood Count 13.3 K/mm3 (4.0-10.5)
[2019-10-22 15:24] LABS: ALBUMIN 4.6 g/dL (3.5-5.0); ALKALINE PHOSPHATASE 145 U/L (38-126); ANION GAP 14.7 MEQ/L (5-15); BLOOD UREA NITROGEN 9 mg/dL (7-17); CHLORIDE 106 mmol/L (98-107); Calcium 9.8 mg/dL (8.4-10.2); Carbon Dioxide 25 mmol/L (22-30); Creatinine 1 0.57 mg/dL (0.52-1.04); Glucose 135 mg/dL (74-106); Potassium 4.2 mmol/L (3.5-5.1); SGOT/AST 61 U/L (14-36); SGPT/ALT 47 U/L (0-35); SODIUM 141 mmol/L (137-145); Total Protein 7.8 g/dL (6.3-8.2)
[2019-10-22 15:46] LABS: INFLUENZA A NEGATIVE (NEGATIVE); INFLUENZA B NEGATIVE (NEGATIVE); RESPIRATORY SYNCTIAL VIRUS NEGATIVE (Negative)
[2019-10-22 15:50] LABS: Appearance CLEAR (CLEAR); Bacteria RARE /HPF (NEGATIVE); Bilirubin NEGATIVE (NEGATIVE); Blood NEGATIVE Ery/ul (0-5); Glucose NEGATIVE (NEGATIVE); Ketones NEGATIVE (NEGATIVE); Leukocyte Esterase NEGATIVE (NEGATIVE); Mucus SLIGHT /HPF (NEGATIVE); Nitrite NEGATIVE (NEGATIVE); Protein,Urine Dip 30 (Negative); Specific Gravity 1.012 (1.005-1.025); Urobilinogen NEGATIVE mg/dL (0-1)
[2019-10-22 17:02] VITALS: BP 147/79; PULSE 90; O2SAT 99
== END 2019-10-22 17:18 | disposition home or self-care (01) ==
LOC: ED 13:54
DX: R53.1 Weakness (principal); D72.829 Elevated white blood cell count, unspecified; R80.9 Proteinuria, unspecified; R74.8 Abnormal levels of other serum enzymes; I10 Essential (primary) hypertension; R53.81 Other malaise; Z79.899 Other long term (current) drug therapy; E78.00 Pure hypercholesterolemia, unspecified
CPT/HCPCS: 36000; 36415; 80053; 81001; 83735; 84484; 85025; 86308; 87631; 93005; 96360; 99284

== ENCOUNTER 2021-10-02 05:57 | Day surgery (SDC) | payer MEDICARE ==
[2021-10-02] MEDS ORDERED: Lactated Ringers 1,000 ML IV SCH (06:30)
[2021-10-02] MEDS ORDERED: Sodium Chloride 0.9% 1000 ML 1,000 ML ONE (07:28)
[2021-10-02] MEDS ORDERED: Sodium Chloride 0.9% 1000 ML 1,000 ML IV SCH (07:45)
[2021-10-02] MEDS ORDERED: DIPRIVAN 200 MG/20 ML IV ONE (07:54)
[2021-10-02] MEDS ORDERED: Versed 2 MG/2 ML Injection ONE (08:00)
--- NOTE | 2021-10-02 08:39 | OP ---
SURGERY DATE/TIME: 10/02/2021 0754 PREOPERATIVE DIAGNOSIS: Screening exam. POSTOPERATIVE DIAGNOSIS: Polyp in the transverse colon and inadequate prep in the ascending colon. PROCEDURE: Colonoscopy. SURGEON: Dr. Dwyer. ANESTHESIA: MAC. Anesthesia provided by anesthesia department. HISTORY: The patient is a 51-year-old white female presenting now for colonoscopic evaluation. She was appraised of the risks of the procedure including the risk of perforation, phlebitis, untoward reaction to medication, bleeding and missed lesions. The patient verbalized her understanding and desired to have the procedure performed. DESCRIPTION OF PROCEDURE: The patient was given the medications by the anesthesia department. She had continuous pulse oximetry, ECG monitoring, intermittent blood pressure monitoring during the examination. She was placed in the left lateral decubitus position. A digital rectal examination was performed and revealed normal anal sphincter tone and no masses. The flexible Olympus pediatric colonoscope was used to intubate the rectum. A view of the colon was developed to the ascending colon where inadequate prep was present with semi-solid stool present throughout that area and unable to be cleaned. The patient did have a small polyp in the transverse colon which was biopsied using cold biopsy technique to see if there is any adenomatous change. No other mucosal lesions being encountered the scope was removed from the patient who tolerated the procedure well and was sent back to OP recovery in good condition. The prep was noted to be poor to inadequate on the right side of the colon.
[2021-10-02 09:18] VITALS: PULSE 80; O2SAT 97
[2021-10-02 09:31] VITALS: BP 157/67
== END 2021-10-02 09:35 | disposition home or self-care (01) ==
LOC: SDC 05:57
PROVIDERS: ATTEND Family Medicine
DX: Z12.11 Encounter for screening for malignant neoplasm of colon (principal); D12.3 Benign neoplasm of transverse colon; E11.9 Type 2 diabetes mellitus without complications
CPT/HCPCS: 82947; J2250; J2704

== ENCOUNTER 2021-11-25 05:50 | Day surgery (SDC) | payer MEDICARE ==
[2021-11-25] MEDS ORDERED: Lactated Ringers 1,000 ML IV SCH (06:30)
[2021-11-25 06:35] VITALS: O2SAT 98
[2021-11-25] MEDS ORDERED: DIPRIVAN 200 MG/20 ML IV ONE ×2 (08:01→08:09)
[2021-11-25] MEDS ORDERED: Xylocaine-Mpf 2% 5 Ml Vial ONE (08:01)
--- NOTE | 2021-11-25 08:27 | PCM.DCORD ---
- Discharge Disposition: Home, Self-Care Condition: Stable Prescriptions: New Omeprazole 40 mg PO DAILY #30 cap Continue Insulin Detemir [Levemir Flexpen] 30 units SQ DAILY Loperamide HCl 2 mg [Imodium 2 mg] 2 mg PO BID Cetirizine HCl [Zyrtec] 10 mg PO DAILY Atenolol 50 mg [Tenormin 50 mg] 25 mg PO BID Venlafaxine HCl ER 75 mg [Effexor XR 75 MG] 150 mg PO BID Simvastatin 40 mg [Zocor 40 mg] 40 mg PO HS Enalapril Maleate 5 mg [Vasotec 5 MG] 5 mg PO BID Cholecalciferol (Vitamin D3) [Vitamin D] 24,000 units PO UD Sitagliptin Phosphate [Januvia] 100 mg PO DAILY Multivitamin [Daily Multivitamin] 1 tab PO DAILY Medroxyprogesterone Acetate [Depo-Provera] 0 mg SQ .UNKNOWN Insulin Aspart [NovoLOG Insulin] 17 unit SQ UD Pramipexole Di-HCl [Mirapex] 2 mg PO HS Levothyroxine Sodium 50 Mcg [Synthroid 50 Mcg] 50 mcg PO DAILY lamoTRIgine [Lamictal] 150 mg PO HS Finerenone [Kerendia] 10 mg PO DAILY Brexpiprazole [Rexulti] 5.5 mg PO HS Semaglutide [Ozempic] 0.25 mg SQ WEEKLY Dapagliflozin Propanediol [Farxiga] 1 tab PO DAILY Discontinued Aspirin 81 mg PO DAILY Follow up with: ERIN SNOW [Primary Care Provider] -
[2021-11-25 09:15] VITALS: PULSE 80
[2021-11-25 09:26] VITALS: BP 143/81
--- NOTE | 2021-11-25 10:20 | OP ---
SURGERY DATE/TIME: 11/25/2021 0759 PREOPERATIVE DIAGNOSES: 1) Hoarseness. 2) Persistent nausea. POSTOPERATIVE DIAGNOSIS: Moderate gastritis. PROCEDURE: EGD. SURGEON: Javid Carmichael M.D. ANESTHESIA: MAC by James Weathers CRNA. ESTIMATED BLOOD LOSS: None. SPECIMENS: Two cold forceps biopsies from the gastric antrum. DESCRIPTION OF PROCEDURE: After informed written consent was obtained, the patient was taken to the endoscopy suite. She was placed in the left lateral decubitus position and a bite block was inserted. The endoscope was inserted into the posterior oropharynx and under direct visualization the esophagus was traversed. The esophageal mucosa had a normal appearance. The gastroesophageal junction likewise was normal. Upon entering into the stomach there was normal rugated gastric mucosa. There were moderate gastritis-type changes with some dried blood in the gastric cavity. No obvious ulcerations or active bleeding were encountered. The pylorus was traversed and the first and second portions of the duodenum had a normal mucosal appearance with no ulcerations or abnormalities. Two cold forceps biopsies were taken from the gastric antrum and sent for Helicobacter pylori testing. Upon withdrawal the remainder of the exam again unremarkable. The scope was removed and the patient was transferred to the recovery room in good condition. I have advised that she hold her aspirin and start proton pump inhibitor therapy and follow up in a week for pathology results.
== END 2021-11-25 09:15 | disposition home or self-care (01) ==
LOC: SDC 05:50
PROVIDERS: ATTEND Family Medicine
DX: K29.70 Gastritis, unspecified, without bleeding (principal); R49.0 Dysphonia; R11.0 Nausea; E11.9 Type 2 diabetes mellitus without complications
CPT/HCPCS: 82947; 84703; J2704

== ENCOUNTER 2023-02-16 12:39 | Emergency (ER) | payer MEDICARE ==
[2023-02-16 12:53] VITALS: BP 144/68
--- NOTE | 2023-02-16 13:18 | ERPHSYRPT ---
- History of Present Illness Time Seen by Provider: 02/16/23 12:55 Source: patient Exam Limitations: no limitations Patient Subjective Stated Complaint: Left buttock pain Triage Nursing Assessment: Patient ambulated back to ED and transferred self to bed. Patient A+O X 3. Patient's skin pink, warm and dry. Patient states she had a fall one week ago landing on her left side of [facility]. Patient states she is having left sided lower back/buttock pain 3/10 when at rest and 7/10 when moving. No visible bruising or trauma noted. Physician History: Patient is a 52-year-old white female who fell 1 week ago walking down one step. She has had pain since which she rates at its worst is a 7 of 10 in the left lower back and buttocks area. She had no loss of consciousness or other injury. Timing/Duration: week(s) (1) Method of Injury: fall Quality: stabbing Back Pain Location: lumbar spine, coccyx Back Pain Radiation: buttocks Severity of Pain-Max: moderate Severity of Pain-Current: moderate Associated Symptoms: denies symptoms Previous symptoms: no prior history Allergies/Adverse Reactions: bupropion HCl [From Wellbutrin] Allergy (Intermediate, Verified 02/16/23 12:44) aripiprazole [From Abilify] Allergy (Verified 02/16/23 12:44) clindamycin Allergy (Verified 02/16/23 12:44) metal Allergy (Uncoded 02/16/23 12:44) Home Medications: Atenolol 50 mg [Tenormin 50 mg] 25 mg PO BID 02/13/16 [History] Cetirizine HCl [Zyrtec] 10 mg PO DAILY 02/13/16 [History] Cholecalciferol (Vitamin D3) [Vitamin D] 24,000 units PO UD 02/13/16 [History] Enalapril Maleate 5 mg [Vasotec 5 MG] 5 mg PO BID 02/13/16 [History] Insulin Detemir [Levemir Flexpen] 30 units SQ DAILY 02/13/16 [History] Loperamide HCl 2 mg [Imodium 2 mg] 2 mg PO BID 02/13/16 [History] Medroxyprogesterone Acetate [Depo-Provera] 0 mg SQ .UNKNOWN 02/13/16 [History] Multivitamin [Daily Multivitamin] 1 tab PO DAILY 02/13/16 [History] Simvastatin 40 mg [Zocor 40 mg] 40 mg PO HS 02/13/16 [History] Sitagliptin Phosphate [Januvia] 100 mg PO DAILY 02/13/16 [History] Venlafaxine HCl ER 75 mg [Effexor XR 75 MG] 150 mg PO BID 02/13/16 [History] Insulin Aspart [NovoLOG Insulin] 17 unit SQ UD 05/26/16 [History] Pramipexole Di-HCl [Mirapex] 2 mg PO HS 03/07/17 [History] Brexpiprazole [Rexulti] 5.5 mg PO HS 09/30/21 [History] Finerenone [Kerendia] 10 mg PO DAILY 09/30/21 [History] Levothyroxine Sodium 50 Mcg [Synthroid 50 Mcg] 50 mcg PO DAILY 09/30/21 [History] lamoTRIgine [Lamictal] 150 mg PO HS 09/30/21 [History] Dapagliflozin Propanediol [Farxiga] 1 tab PO DAILY 11/24/21 [History] Semaglutide [Ozempic] 0.25 mg SQ WEEKLY 11/24/21 [History] Hx Tetanus, Diphtheria Vaccination/Date Given: Yes Hx Influenza Vaccination/Date Given: Yes Hx Pneumococcal Vaccination/Date Given: No Immunizations Up to Date: Yes Travel Risk - International Travel Have you traveled outside of the country in past 3 weeks: No - Coronavirus Screening Are you exhibiting any of the following symptoms?: No Close contact with a COVID-19 positive Pt in past 14-21 Days: No - Vaccine Status Have you recieved a Covid-19 vaccination: Yes Snapper On: Unknown - Vaccination Dates Dates if Unknown: na - Review of Systems Constitutional: No Fever, No Chills Eyes: No Symptoms Ears, Nose, & Throat: No Symptoms Respiratory: No Cough, No Dyspnea Cardiac: No Chest Pain, No Edema, No Syncope Abdominal/Gastrointestinal: No Abdominal Pain, No Nausea, No Vomiting, No Diarrhea Genitourinary Symptoms: No Dysuria Musculoskeletal: Back Pain (Tenderness extends down to the sacrum and coccyx area), No Neck Pain Skin: No Rash Neurological: No Dizziness, No Focal Weakness, No Sensory Changes Psychological: No Symptoms Endocrine: No Symptoms All Other Systems: Reviewed and Negative - Past Medical History Pertinent Past Medical History: Yes Neurological History: No Pertinent History ENT History: No Pertinent History Cardiac History: Arrhythmia, High Cholesterol, Hypertension Respiratory History: Sleep Apnea Endocrine Medical History: Diabetes Type II Musculoskeletal History: Degenerative Disk Disease, Fibromyalgia GI Medical History: GERD, Polyps History: Renal Disease Psycho-Social History: Anxiety, Depression, Panic Disorder Female Reproductive Disorders: No Pertinent History Other Medical History: Cardiac ablation for SVT at [facility] by Dr. Spann. Agoraphobia. Pt has sleep apnea but hasn't wore her Cpap for 2 years. Heavy smoker since age 15. Pt reports having COPD but hasn't been diagnosed. Lesions on liver. Stage 2 renal disease. bladder urgency blood in urine - Past Surgical History Past Surgical History: Yes Neuro Surgical History: No Pertinent History Cardiac: Other Respiratory: No Pertinent History Gastrointestinal: Cholecystectomy Genitourinary: No Pertinent History Musculoskeletal: Other Female Surgical History: No Pertinent History Other Surgical History: back surgery- partial discectomy. cardiac ablation. FATTY TUMOR FROM BACK REMOVED 08/27/13. debridement,colonoscopy,EGD - Social History Smoking Status: Current every day smoker How long have you smoked: 36years Exposure to second hand smoke: Yes Drug Use: none Patient Lives Alone: No Significant Family History: diabetes - Nursing Vital Signs Nursing Vital Signs: Initial Vital Signs Temperature 95.7 F 02/16/23 12:47 Pulse Rate 90 02/16/23 12:47 Respiratory Rate 18 02/16/23 12:47 Blood Pressure 144/68 02/16/23 12:47 O2 Sat by Pulse Oximetry 100 02/16/23 12:47 Pain Scale Pain Intensity 3 - Physical Exam General Appearance: moderate distress, alert Eye Exam: PERRL/EOMI, eyes nml inspection Neck Exam: normal inspection, non-tender, supple, full range of motion, No meningismus, No midline tenderness Respiratory Exam: normal breath sounds, lungs clear, No respiratory distress Cardiovascular Exam: regular rate/rhythm, normal heart sounds Gastrointestinal Exam: soft, No tenderness, No mass Back Exam: point tenderness (Tenderness over the lumbar area and the sacrum and coccyx. Tendency toward the left side of the lower back and coccyx area) Extremity Exam: normal inspection, normal range of motion, No calf tenderness, No pedal edema Neurologic Exam: alert, oriented x 3, cooperative, president and chief executive officer II-XII nml as tested, normal mood/affect, nml station & gait, sensation nml, No motor deficits Skin Exam: normal color, warm, dry, No rash SpO2: 100 - Course Nursing assessment & vital signs reviewed: Yes - Radiology Exams L-Spine X-ray Interpretation: Reviewed by me, Other (Sacrum and coccyx with no fracture observed was also recorded.) Ordered Tests: Active Orders 24 hr Category Date Time Status LUMBAR COMPLETE (MIN 4 VIEWS) Stat Exams 02/16/23 12:50 Completed SACRUM AND COCCYX Stat Exams 02/16/23 12:49 Completed - Progress Progress: unchanged Medical Desision Making - Diagnostic Testing Radiological Interpretation: Interpreted by me, Reviewed by me - Risk of complications The pt has a mod risk of morbidity or mortality based on: Need for prescription drug management - Departure Departure Disposition: Home Clinical Impression: Sacral contusion Condition: Stable Critical Care Time: No Referrals: MARK MARINA NP [Primary Care Provider] - Follow up/PCP as directed Instructions: Low Back Pain (DC) Prescriptions: Hydrocodone/Acetaminophen [Hydrocodone-Acetamin 5-325 mg] 1 tab PO Q6HPRN PRN 3 Days #12 tablet MDD 4 PRN Reason: Pain
--- NOTE | 2023-02-16 14:08 | XRAY ---
CLINICAL HISTORY:pain fall COMPARISON:None. TECHNIQUE:Plain films of the sacrum and coccyx were obtained in AP and lateral projections. FINDINGS: The overall bone density of the skeletal structures is within normal limits. The vertebral body heights and alignment are preserved. The visualized osseous structures and join spaces of the sacrum/coccyx appear unremarkable. No fracture or other significant skeletal abnormality was demonstrated. Degenerative changes with osteophytosis and reduced intervertebral disc space seen at the L4-5 level. Both sacroiliac joints appear unremarkable. Soft tissues appear unremarkable except aortic calcifications seen. IMPRESSION: 1. No acute osseous abnormality seen in the sacrum and coccyx. 2. Degenerative changes with osteophytosis and reduced intervertebral disc space seen at the L4-5 level. 3. No definite sacral or coccygeal fracture was seen. (Disclaimer: "A subtle bone abnormality or fracture may not be readily apparent on x-rays, thus clinical correlation and further imaging including follow-up CT, MRI, or follow-up x-rays are advised as needed"). Electronically Signed by: Sulaiman Romo MD. (02/16/2023 13:07:26 HOME CARE PHYSICAL THERAPIST)
--- NOTE | 2023-02-16 14:10 | XRAY ---
CLINICAL HISTORY:pain fall COMPARISON:None. TECHNIQUE:x-ray lumbar spine AP, lateral, both obliques and spot L5 views. FINDINGS: Loss of normal lumbar lordosis likely due to muscular spasm. No acute fracture or subluxation identified Degenerative changes with marginal osteophytes at lower lumbar spine levels. Reduced intervertebral disc space is seen at the L4-L5 level with endplate sclerosis. cholecystectomy clips are seen. both sacroiliac joints appear unremarkable. Vascular calcification seen. The height of vertebral bodies appears unremarkable. IMPRESSION: 1. No acute osseous abnormality was seen in the lumbar spine. 2. Lumbar spondylosis. (Disclaimer: "A subtle bone abnormality or fracture may not be readily apparent on x-rays, thus clinical correlation and further imaging including follow-up CT, MRI, or follow-up x-rays are advised as needed"). Electronically Signed by: Sulaiman Romo MD. (02/16/2023 13:09:52 FACILITIES PAINTER)
[2023-02-16 14:24] VITALS: PULSE 78; O2SAT 97
== END 2023-02-16 14:24 | disposition home or self-care (01) ==
LOC: ED 12:39
DX: S30.0XXA Contusion of lower back and pelvis, initial encounter (principal); W10.9XXA Fall (on) (from) unspecified stairs and steps, initial encounter; E78.5 Hyperlipidemia, unspecified; I12.9 Hypertensive chronic kidney disease with stage 1 through stage 4 chronic kidney disease, or unspecified chronic kidney disease; E11.22 Type 2 diabetes mellitus with diabetic chronic kidney disease; N18.2 Chronic kidney disease, stage 2 (mild); Z79.4 Long term (current) use of insulin; Z79.84 Long term (current) use of oral hypoglycemic drugs; Z79.85 Long-term (current) use of injectable non-insulin antidiabetic drugs; Z79.899 Other long term (current) drug therapy; Z72.0 Tobacco use
CPT/HCPCS: 72110; 72220; 99282